=== PATIENT | male | born 1965 | race Caucasian/White ===

== ENCOUNTER 2018-07-30 01:20 | Emergency (ER) | payer SELFPAY ==
[~2018-07-30] VITALS: Ht 177.8 cm; Wt 95.3 kg
--- NOTE | 2018-07-30 02:50 | NUR ---
PT BIBSELF C/O EXTREMITY REDNESS/SWELLING. PT STATES HE HAS A BUG BITE ON HIS LEFT LOWER EXTREMITY AND APPLIED TEA TREE OIL 3 DAYS AGO. PT NOW HAS REDNESS AND SWELLING BILATERAL UPPER AND LOWER EXTREMITIES, BLISTERS NOTED ON RIGHT ANKLE. PT DENIES SOB, CHEST PAIN. PT AAOX4, NAD NOTED, RESPIRATIONS EVEN AND UNLABORED. PT ON MONITOR, WAITING MD EVALUATION.
--- NOTE | 2018-07-30 03:07 | NUR ---
MD AT BEDSIDE FOR EVALUATION
[2018-07-30 03:10] VITALS: BP 107/73
--- NOTE | 2018-07-30 03:26 | NUR ---
IV INITIATED ON LEFT ARM 18G. LABS DRAWN AND GIVEN TO [employer] SUPERVISOR AT BEDSIDE. IV ON SALINE LOCK
[2018-07-30 03:34] LABS: BASOPHILS % (AUTO) 0.5 % (0.0-2.0); HEMATOCRIT 48 % (39-51); HEMOGLOBIN 16.4 g/dL (13.5-17.5); LYMPHOCYTES # (AUTO) 2.7 /CMM (0.8-4.8); LYMPHOCYTES % (AUTO) 29.4 % (20.0-44.0); MEAN CORPUSCULAR HEMOGLOBIN 34 PG (26.0-33.0); MEAN CORPUSCULAR HGB CONC 34 g/dl (31.0-36.0); MEAN CORPUSCULAR VOLUME 100 fL (80-96); MONOCYTES # (AUTO) 0.4 /CMM (0.1-1.30); MONOCYTES % (AUTO) 4.7 % (2.0-12.0); NEUTROPHILS # (AUTO) 5.9 /CMM (1.8-8.9); NEUTROPHILS % (AUTO) 63.4 % (43.0-81.0); PLATELET COUNT (AUTO) 240 /CMM (150-450); RDW COEFFICIENT OF VARIATION 13.1 (11.5-15.0); RED BLOOD CELL COUNT(AUTO) 4.84 MIL/uL (4.5-6.0); WHITE BLOOD COUNT (AUTO) 9.3 K/uL (4.3-11.0)
[2018-07-30 03:45] LABS: CALCIUM, SERUM 9.3 mg/dL (8.5-10.1); CREATININE 0.9 mg/dL (0.6-1.3); POTASSIUM 3.8 mmol/L (3.5-5.1)
--- NOTE | 2018-07-30 03:45 | NUR ---
SPOKE WITH FENG FROM POISON CONTROL REGARDING PT USE OF TEA TREE OIL. MD OCHOA
[2018-07-30 03:46] LABS: INR 0.9 (0.87-1.13)
== END 2018-07-30 04:29 | disposition home or self-care (01) ==
LOC: ER 01:27
DX: L30.9 Dermatitis, unspecified (principal); E11.9 Type 2 diabetes mellitus without complications; F17.210 Nicotine dependence, cigarettes, uncomplicated
CPT/HCPCS: 36415; 80048-TC; 85025-TC; 85730-TC; 86850-TC; A4606; Z7610

== ENCOUNTER 2020-06-01 19:03 | Emergency (ER) | payer OTHER ==
[~2020-06-01] VITALS: Ht 172.7 cm; Wt 94.3 kg
--- NOTE | 2020-06-01 19:28 | NUR ---
PT PRESENTED TO THE ER WITH A C/O LT SIDED RIB PAIN S/P FALL A FEW DAYS AGO. PT WENT TO [facility], WAS ADMITTED AND SENT HOME. PT HAS LARGE HEMATOMA ON LT RIBS AND IS WORRIED THAT THEY MAY HAVE MISSED SOMETHING.
[2020-06-01 19:32] LABS: BASOPHILS # (AUTO) 0.1 /CMM (0.0-0.2); EOSINOPHILS % (AUTO) 4.2 % (0.0-6.0); HEMATOCRIT 48 % (39-51); HEMOGLOBIN 16.5 g/dL (13.5-17.5); LYMPHOCYTES # (AUTO) 2.6 /CMM (0.8-4.8); LYMPHOCYTES % (AUTO) 26.6 % (20.0-44.0); MEAN CORPUSCULAR HGB CONC 34 g/dl (31.0-36.0); MEAN CORPUSCULAR VOLUME 100 fL (80-96); MONOCYTES # (AUTO) 0.7 /CMM (0.1-1.30); MONOCYTES % (AUTO) 6.8 % (2.0-12.0); NEUTROPHILS % (AUTO) 61.4 % (43.0-81.0); PLATELET COUNT (AUTO) 304 /CMM (150-450); RED BLOOD CELL COUNT(AUTO) 4.79 MIL/uL (4.5-6.0); WHITE BLOOD COUNT (AUTO) 9.8 K/uL (4.3-11.0)
[2020-06-01 19:46] LABS: CALCIUM, SERUM 9.4 mg/dL (8.5-10.1); CREATININE 1.1 mg/dL (0.6-1.3); POTASSIUM 3.8 mmol/L (3.5-5.1)
[2020-06-01] MEDS ORDERED: IV NS 0.9% 250 ML IV ONE (19:53)
[2020-06-01] MEDS ORDERED: IOHEXOL-300 100 ML VIAL IV ONE (19:53)
[2020-06-01] MEDS ORDERED: CT SWABBABLE VALVE TRANS SET 1 EA INFUS.SET MC ONE (19:53)
--- NOTE | 2020-06-01 20:09 | NUR ---
18G IV STARTED IN RAC.
--- NOTE | 2020-06-01 20:16 | NUR ---
PT RETURNED FROM CT.
[2020-06-01 20:34] VITALS: BP 128/87
--- NOTE | 2020-06-01 20:34 | NUR ---
IV removed. Catheter intact and site benign. Pressure and 4x4 applied to site. No bleeding noted. Patient discharged to home in stable condition. Written and verbal after care instructions given. Patient verbalizes understanding of instruction. PT AMBULATED OUT WITH A STEADY GAIT. VSS.
== END 2020-06-01 20:35 | disposition home or self-care (01) ==
LOC: ER 19:05
DX: S30.1XXA Contusion of abdominal wall, initial encounter (principal); E11.9 Type 2 diabetes mellitus without complications; W18.30XA Fall on same level, unspecified, initial encounter; Y93.89 Activity, other specified; Y92.89 Other specified places as the place of occurrence of the external cause; Y99.8 Other external cause status
CPT/HCPCS: 36415; 71250; 74177; 80048; 85025; 85730; 99285; J7050; Q9967

== ENCOUNTER 2021-08-29 13:46 | Emergency (ER) | payer OTHER ==
[~2021-08-29] VITALS: Ht 175.3 cm; Wt 88.0 kg
[2021-08-29 14:41] VITALS: BP 158/95
[2021-08-29] MEDS ORDERED: IBUP-1955 PO (16:45)
--- NOTE | 2021-08-29 16:51 | NUR ---
Patient discharged to home in stable condition. Written and verbal after care instructions given. Patient verbalizes understanding of instruction.
== END 2021-08-29 17:08 | disposition home or self-care (01) ==
LOC: ER 13:54
DX: S62.232A Other displaced fracture of base of first metacarpal bone, left hand, initial encounter for closed fracture (principal); S62.391A Other fracture of second metacarpal bone, left hand, initial encounter for closed fracture; I10 Essential (primary) hypertension; E11.9 Type 2 diabetes mellitus without complications; F17.210 Nicotine dependence, cigarettes, uncomplicated; W18.39XA Other fall on same level, initial encounter; Y93.89 Activity, other specified; Y92.89 Other specified places as the place of occurrence of the external cause; Y99.8 Other external cause status
CPT/HCPCS: 73130-TC

== ENCOUNTER 2023-05-12 17:41 | Emergency (ER) | payer OTHER ==
[~2023-05-12] VITALS: Ht 177.8 cm; Wt 83.9 kg
[~2023-05-12 17:41] MED LIST: IBUP-1955 PO
[2023-05-12 17:52] VITALS: BP 100/72; TEMP 98.1
--- NOTE | 2023-05-12 18:00 | NUR ---
RECEVED PT 58 YRS MALE WALKING IN FROM HOME FALL DOWN LACERATION ON LT SIDE OF FACE NO ACTIVE BLEEING
--- NOTE | 2023-05-12 18:10 | NUR ---
WOUND IRRGATION AT BED SIDE
[2023-05-12] MEDS ORDERED: HYDROCODONE/APAP 10/325MG TABLET PO ONE (19:00)
[2023-05-12] MEDS ORDERED: LIDOCAINE 2% 20 ML MDV TP ONE (19:00)
[2023-05-12] MEDS ORDERED: TDAP [DIPH/PERTUSSIS/TET] 0.5 ML VIAL IM ONE ×2 (19:00→19:15)
[2023-05-12] MEDS ORDERED: HYDROCODONE/APAP 10/325MG TABLET ONE (19:14)
[2023-05-12] MEDS ORDERED: LIDOCAINE 1% INJ 50 ML MDV IJ ONE (19:14)
--- NOTE | 2023-05-12 19:27 | NUR ---
Patient in bed with at bedside. No signs of distress. Discussed plan of care, pt verbalized agreement. All safety precautions taken.
[2023-05-12] MEDS ORDERED: BACI30OI9 TP ×2 (20:18→21:52)
--- NOTE | 2023-05-12 20:25 | NUR ---
DR DONYA PALACIO AT PT'S BEDSIDE FOR LAC
[2023-05-12] MEDS ORDERED: MIDAZOLAM 50 MG/10 ML VIAL ONE (20:38)
[2023-05-12] MEDS ORDERED: MIDAZOLAM HCL 2 MG/2ML VIAL IM ONE (21:00)
[2023-05-12] MEDS ORDERED: HYDR-4279 PO ×2 (21:48→21:52)
[2023-05-12] MEDS ORDERED: CEPH500C2 PO ×2 (21:48→21:52)
[2023-05-12] MEDS ORDERED: IBUP-1955 PO ×2 (21:48→21:52)
== END 2023-05-12 22:00 | disposition home or self-care (01) ==
LOC: ER 17:50
DX: S11.91XA Laceration without foreign body of unspecified part of neck, initial encounter (principal); R42 Dizziness and giddiness; I10 Essential (primary) hypertension; E11.9 Type 2 diabetes mellitus without complications; F17.200 Nicotine dependence, unspecified, uncomplicated; Z79.899 Other long term (current) drug therapy; W18.30XA Fall on same level, unspecified, initial encounter; Y93.89 Activity, other specified; Y92.89 Other specified places as the place of occurrence of the external cause; Y99.8 Other external cause status
CPT/HCPCS: 99283; 12013; 90471; 90715; J3490; A6403; J2250

== ENCOUNTER 2024-07-23 08:29 | Emergency (ER) | payer OTHER ==
[~2024-07-23] VITALS: Ht 177.8 cm; Wt 86.2 kg
[~2024-07-23 08:29] MED LIST changes: +BACI30OI9 TP; +CEPH500C2 PO; +HYDR-4279 PO
[2024-07-23 08:49] VITALS: TEMP 98.5
--- NOTE | 2024-07-23 09:05 | NUR ---
RECEIVED PT 59 YRS MALE WALK IN FROM HOME C/O PAIN AND SWALLEN ON RT HAND AND ARM S/P FELL DOWN FROM [facility] SINCE YESTERDAY [facility]
--- NOTE | 2024-07-23 09:40 | NUR ---
SEEN BY DR. ALFARO
--- NOTE | 2024-07-23 10:20 | NUR ---
X RAY DONE AT BED SIDE
[2024-07-23] MEDS ORDERED: NAPR-1009 PO (11:01)
--- NOTE | 2024-07-23 11:15 | NUR ---
Patient discharged to home in stable condition. Written and verbal after care instructions given. Patient verbalizes understanding of instruction.
[2024-07-23 11:37] VITALS: BP 129/79; O2SAT 98
== END 2024-07-23 11:37 | disposition home or self-care (01) ==
LOC: ER 08:31
DX: S52.611A Displaced fracture of right ulna styloid process, initial encounter for closed fracture (principal); S52.591A Other fractures of lower end of right radius, initial encounter for closed fracture; I10 Essential (primary) hypertension; E11.9 Type 2 diabetes mellitus without complications; F17.210 Nicotine dependence, cigarettes, uncomplicated; Z86.73 Personal history of transient ischemic attack (TIA), and cerebral infarction without residual deficits; V19.9XXA Pedal cyclist (driver) (passenger) injured in unspecified traffic accident, initial encounter; Y93.89 Activity, other specified; Y92.89 Other specified places as the place of occurrence of the external cause; Y99.8 Other external cause status
CPT/HCPCS: 73080-TC; 73110